=== PATIENT | female | born 1960 | race African-American/Black ===

== ENCOUNTER 2018-06-06 22:50 | Inpatient (IN) | payer SELFPAY ==
[~2018-06-06] VITALS: Ht 165.1 cm; Wt 91.8 kg
[2018-06-06] VITALS (23 sets, daily range): BP systolic 168–177; BP diastolic 75–82; PULSE 83; TEMP 98.1; O2SAT 93–96
[~2018-06-06 22:50] MED LIST: ASPIRIN E.C. 8181 MG PO; BENICAR HCT 251 TAB PO; BENICAR40 MG PO; BYSTOLIC10 MG PO; BYSTOLIC2.5 MG; CIPRO 500MG TA500 MG PO; COMBIGAN 0.2%-010 ML OU; COREG12.5 MG PO; DETROL LA 2 MG2 MG PO; FORTAMET500 MG PO; GLUCOPHAGE500 MG/TAB PO; KLOR-CON M2020 MEQ PO; LASIX 20MG TABL20 MG PO; LASIX 40MG TABL40 MG PO; LIPITOR 10MG10 MG PO; LIPITOR 80MG80 MG PO; LIPITOR20 MG PO; LUMIGAN 7.5 ML7.5 M1 OP; MOBIC15 MG PO; NEURONTIN300 MG/CAP PO; NORCO 325 MG-51 TAB PO; NORVASC 10MG10 MG PO; PROAIR HFA0.09 MG/AC IH; RESTORIL 1515 MG/CAP PO; TOPROL XL 25MG25 MG PO; ZESTRIL 20MG TA20 MG PO
--- NOTE | 2018-06-06 23:37 | NUR ---
Patient arrives to ICU 7 via stretcher with [facility]. Prior report recieved from [facility] ED. Patient ambulates to toilet with standby assistance and then to bed. She is attached to monitors. Assessment and vitals as charted. Provider notified of patient arrival. LW peripheral IV is flushed and patent. Cardene is infusing at 5mg/hr (50mls/hr) from prior facility. Care assumed at this time.
[2018-06-07] VITALS (721 sets, daily range): BP systolic 116–177; BP diastolic 52–94; PULSE 74–93; TEMP 98.1–98.2; O2SAT 85–98
--- NOTE | 2018-06-07 00:17 | NUR ---
After review of patient packet from [facility] no current/accurate medrec is provided. This RN calls and requests updated list faxed to ICU.
[2018-06-07 00:34] LABS: TROPONIN-I < 0.012 ng/mL (0.000-0.035)
--- NOTE | 2018-06-07 00:39 | NUR ---
Fax recieved from [facility] with updated medrec. Reviewed with patient and updated as charted. Care ongoing.
[2018-06-07 00:40] LABS: MAGNESIUM 1.5 mg/dL (1.6-2.3)
[2018-06-07 00:41] LABS: INR 1.1 (0.8-3.0); PROTHROMBIN TIME 12.2 SECONDS (9.7-12.8)
[2018-06-07 00:44] LABS: PARTIAL THROMBOPLASTIN TIME 29.3 SECONDS (26.0-37.0)
[2018-06-07] MEDS ORDERED: LIPITOR 40MG TA40 MG PO ×2 (00:45→14:18)
[2018-06-07] MEDS ORDERED: NEURONTIN100 MG/CAP PO ×2 (00:46→14:19)
[2018-06-07] MEDS ORDERED: JANUMXR100-1000 PO ×2 (00:46→14:23)
[2018-06-07] MEDS ORDERED: COREG 25MG25 MG/TAB PO ×2 (00:46→14:18)
[2018-06-07] MEDS ORDERED: DITROPAN 5MG TAB5 MG PO ×2 (00:47→14:27)
[2018-06-07] MEDS ORDERED: COZAAR100 MG PO ×2 (00:47→14:18)
[2018-06-07] MEDS ORDERED: PROTONIX 40MG T40 MG PO ×2 (00:48→14:21)
[2018-06-07] MEDS ORDERED: REQUIP 0.5MG0.5 MG PO ×2 (00:48→14:19)
[2018-06-07] MEDS ORDERED: ZOFRAN8 MG PO (00:49)
[2018-06-07] MEDS ORDERED: LASIX 40MG TABL40 MG PO (00:50)
[2018-06-07 00:58] LABS: TSH w REFLEX 0.856 uIU/mL (0.465-4.680)
[2018-06-07] MEDS ORDERED: NOVOLOG 100U100 U/M1 SQ ×2 (01:20→14:27)
[2018-06-07] MEDS ORDERED: TRESIBA FL100 UNIT/1 SQ ×2 (01:21→14:26)
[2018-06-07] MEDS ORDERED: TRULICITY0.75 MG/0. (01:21)
[2018-06-07] MEDS ORDERED: TRULICITY0.75 MG/0. SQ ×2 (01:21→14:26)
[2018-06-07] MEDS ORDERED: JARDIANCE10 (01:22)
[2018-06-07 01:28] LABS: PH 6 (5-8); SQUAMOUS EPITHELIAL 0-2 /hpf; URINE APPEARANCE Clear; URINE BACTERIA None Seen /hpf; URINE BILIRUBIN Negative (NEGATIVE); URINE BLOOD Negative (NEGATIVE); URINE COLOR Straw; URINE GLUCOSE 3+ (NEGATIVE); URINE KETONE Negative (NEGATIVE); URINE LEUKOCYTE ESTERASE Negative (NEGATIVE); URINE NITRATE Negative (NEGATIVE); URINE PROTEIN(semi-quant) Negative (NEGATIVE); URINE RBC 0-2 /hpf; URINE UROBILINOGEN Negative (NEGATIVE)
[2018-06-07 02:11] LABS: COLLECTION METHOD CLEAN CATCH
--- NOTE | 2018-06-07 03:38 | NUR ---
Patient with frequent trips to the bathroom through night with standby assistance provided.
[2018-06-07 03:48] LABS: HEMATOCRIT 41.3 % (37.0-47.0); MEAN CELL VOLUME 90 fl (80.0-100.0); MEAN CORPUSCULAR HEMOGLOBIN 28 pg (27.0-31.0); MEAN CORPUSCULAR HGB CONC 32 g/dl (33.0-37.0); MEAN PLATELET VOLUME 11.1 fl (7.4-10.4); PLATELET COUNT 264 K/mm3 (130-400); RED BLOOD COUNT 4.61 M/mm3 (4.10-5.30); REDCELL DISTRIBUTION WIDTH-CV 12.8 % (11.5-14.5)
[2018-06-07 03:58] LABS: ALANINE AMINOTRANSFERASE 12 U/L (9-52); ALBUMIN 4.3 gm/dL (3.5-5.0); ALKALINE PHOSPHATASE 126 U/L (50-136); ANION GAP 14 mmol/L (7-16); AST,SGOT 30 U/L (15-37); BILIRUBIN,TOTAL 0.4 mg/dL (0.0-1.0); BLOOD UREA NITROGEN 18 mg/dL (7-17); CALCIUM 9.5 mg/dL (8.4-10.2); CARBON DIOXIDE 23 mmol/L (22-30); CHLORIDE 102 mmol/L (98-107); CHOLESTEROL 149 mg/dL (120-200); CHOLESTEROL RISK RATIO 3.3; CREATININE, serum 0.82 mg/dL (0.52-1.25); GLUCOSE 392 mg/dL (74-106); HDL CHOLESTEROL 44 mg/dL; LDL CHOLESTEROL 89 mg/dL; POTASSIUM 4.2 mmol/L (3.4-5.0); SODIUM 138 mmol/L (137-145); TOTAL PROTEIN 8.6 gm/dL (6.4-8.2); TRIGLYCERIDE 82 mg/dL
[2018-06-07 04:26] LABS: TROPONIN-I < 0.012 ng/mL (0.000-0.035)
--- NOTE | 2018-06-07 07:05 | NUR ---
Report received from Olivia Lowry RN and care resumed. Pt resting quietly in bed. Will continue to follow.
[2018-06-07 09:15] LABS: LYMPHOCYTE 11 % (20.0-51.0); NEUTROPHILS 89 % (42.0-75.2)
[2018-06-07 09:32] LABS: TOXIC GRANULATION PRESENT
--- NOTE | 2018-06-07 10:20 | NUR ---
Dr Nassar in to see pt at this time.
--- NOTE | 2018-06-07 10:39 | NUR ---
Dr Dyer in to see pt at this time.
--- NOTE | 2018-06-07 13:10 | NUR ---
Handyman prayed with patient while they were eating.
[2018-06-07] MEDS ORDERED: ZOFRAN 4MG T4 MG/TAB PO (14:20)
--- NOTE | 2018-06-07 14:37 | NUR ---
DRE met with patient about discharge planning. Patient recently moved to [place]. Patient lives independently at home with roommates. Patient plans to use [facility] in [place] for primary care and [facility] for medications. Patient does not use any home health services or DME in the home. Patient does not have a DPOA and is not interested in that at this time. Patient does not have insurance at this time but if working to find a job that she can get insurance though. DRE provided financial assistance application. Patient reports she will contact the financial counselor on Saturday to fac completed application back. Patient is discharging today. DRE does not anticipate any discharge needs.
--- NOTE | 2018-06-07 15:23 | NUR ---
Pt's IV dc'd and pt given discharge instructions. Currently just remains waiting on ride to bring her clothing. Will continue to follow.
--- NOTE | 2018-06-07 15:50 | NUR ---
Pt taken out by wheelchair to private car for discharge at this time.
== END 2018-06-07 15:50 | disposition home or self-care (01) | DRG 282 ==
LOC: IMCU 22:50 → ICU 23:25
PROVIDERS: Nurse Practitioner Family; ADMIT Hospitalist
DX: I16.0 Hypertensive urgency (principal); I21.A1 Myocardial infarction type 2; I10 Essential (primary) hypertension; E78.5 Hyperlipidemia, unspecified; I27.20 Pulmonary hypertension, unspecified; E11.40 Type 2 diabetes mellitus with diabetic neuropathy, unspecified; G25.81 Restless legs syndrome; J98.4 Other disorders of lung; E83.42 Hypomagnesemia; K21.9 Gastro-esophageal reflux disease without esophagitis; Z88.0 Allergy status to penicillin
CPT/HCPCS: J1650; J1815; J3475; J7030; J7050

== ENCOUNTER 2018-10-13 15:18 | Inpatient (IN) | payer SELFPAY ==
[~2018-10-13] VITALS: Ht 165.1 cm; Wt 98.7 kg
[~2018-10-13 15:18] MED LIST changes: +COREG 25MG25 MG/TAB PO; +COZAAR100 MG PO; +DITROPAN 5MG TAB5 MG PO; +JANUMXR100-1000 PO; +JARDIANCE10; +LIPITOR 40MG TA40 MG PO; +NEURONTIN100 MG/CAP PO; +NOVOLOG 100U100 U/M1 SQ; +PROTONIX 40MG T40 MG PO; +REQUIP 0.5MG0.5 MG PO; +TRESIBA FL100 UNIT/1 SQ; +TRULICITY0.75 MG/0.; +TRULICITY0.75 MG/0. SQ; +ZOFRAN 4MG T4 MG/TAB PO; +ZOFRAN8 MG PO
[2018-10-13 17:16] VITALS: BP 124/47; PULSE 45; TEMP 98.1
--- NOTE | 2018-10-13 18:00 | NUR ---
PATIENT WAS ADMITTED TO THE FLOOR. INITIAL ASSESSMENT PAPERWORK COMPLETED. MEDICATIONS ENTERED TO MED REC. LAB IN TO TAKE HEPXA AT THIS TIME. HEPARIN DRIP INFUSING PER ORDERS.
[2018-10-13] MEDS ORDERED: JARDIANCE10 (18:50)
[2018-10-13] MEDS ORDERED: TRULICITY0.75 MG/0. SQ (18:52)
[2018-10-13] MEDS ORDERED: RESTORIL 1515 MG/CAP PO (18:56)
[2018-10-13] MEDS ORDERED: LASIX 40MG TABL40 MG PO (18:56)
[2018-10-13] MEDS ORDERED: K-DUR20 MEQ PO (18:57)
[2018-10-13] MEDS ORDERED: CELEXA 20MG20 MG/TAB PO (18:58)
--- NOTE | 2018-10-13 18:58 | NUR ---
Report given to TESHA Olson. Patient resting in bed, ordering dinner. Denies any other needs at this time. Call light within reach.
[2018-10-13] MEDS ORDERED: PROAIR RES117 MCG/Ac IH (19:00)
--- NOTE | 2018-10-13 19:16 | NUR ---
MED REC IN COMPUTER PER PT MED LIST. PT STATED THAT SHE DOESNT KNOW WHAT MEDS SHE TAKES AT WHAT TIME. STATES SHE SORTS IT OUT EVERY WEEK AND PUTS INTO A PILL BOX, DOESNT KNOW WHAT MED SHE TAKES WHEN
[2018-10-13 19:31] LABS: PARTIAL THROMBOPLASTIN TIME 205.8 SECONDS (26.0-37.0)
--- NOTE | 2018-10-13 19:37 | NUR ---
See chart for resulted heparin xa and PTT. Low dose heparin protocol followed. Infusion stopped x 1 hr. Carolyn CASTANEDA notified of results. Communication to follow protocol.
[2018-10-13 23:05] VITALS: BP 159/59; PULSE 51; TEMP 98.1
[2018-10-14] VITALS (11 sets, daily range): BP systolic 114–185; BP diastolic 47–74; PULSE 50–63; TEMP 97.9–98.1
[2018-10-14 06:57] LABS: BASO % 0.3 % (0.0-2.0); EOS # 0.1 (0.0-0.7); EOS % 0.7 % (0-4.0); GRAN # 6.1 (1.4-6.5); GRAN % 64.7 % (42.2-75.2); HEMOGLOBIN 11.6 g/dl (12.5-16.0); LYMPH # 2.3 (1.2-3.4); LYMPH % 24.8 % (20.0-51.0); MEAN CELL VOLUME 92 fl (80.0-100.0); MEAN CORPUSCULAR HEMOGLOBIN 29 pg (27.0-31.0); MEAN CORPUSCULAR HGB CONC 32 g/dl (33.0-37.0); MONO # 0.9 (0.1-0.6); MONO % 9.3 % (1.7-9.3); PLATELET COUNT 199 K/mm3 (130-400); RED BLOOD COUNT 3.99 M/mm3 (4.10-5.30); REDCELL DISTRIBUTION WIDTH-CV 12.5 % (11.5-14.5)
[2018-10-14 06:58] LABS: HEMATOCRIT 36.7 % (37.0-47.0)
[2018-10-14 07:00] LABS: ANION GAP 9 mmol/L (7-16); BLOOD UREA NITROGEN 16 mg/dL (7-17); CALCIUM 9.6 mg/dL (8.4-10.2); CARBON DIOXIDE 25 mmol/L (22-30); CHLORIDE 105 mmol/L (98-107); CHOLESTEROL 134 mg/dL (120-200); CHOLESTEROL RISK RATIO 4.6; CREATININE, serum 0.68 (0.52-1.25); GLUCOSE 156 mg/dL (74-106); HDL CHOLESTEROL 29 mg/dL; LDL CHOLESTEROL 65 mg/dL; MAGNESIUM 1.8 mg/dL (1.6-2.3); POTASSIUM 3.8 mmol/L (3.4-5.0); SODIUM 139 mmol/L (137-145); TRIGLYCERIDE 198 mg/dL
[2018-10-14 07:08] LABS: TROPONIN-I < 0.012 ng/mL (0.000-0.035)
--- NOTE | 2018-10-14 08:12 | NUR ---
PATIENT LEAVING UNIT FOR CARDIAC CATH. CONSENT SIGNED.
--- NOTE | 2018-10-14 08:36 | NUR ---
ALL MEDICATIONS GIVEN VORB WITH MD. SEE MERGE FOR ALL MEDICATION ADMIN TIMES. SEE RASS ASSESSMENTS DURING AND POST PROCEDURE. RADIAL PULSE +1. HEPARIN GTT DISCONTINUED PRIOR TO PROCEDURE PER MD ORDERS.
--- NOTE | 2018-10-14 09:23 | NUR ---
Patient transported back to Medical room 307 at this time, telemetry in place. Patient hooked back up to monitoring equipment, VS stable. Patient denies any pain. Bedside report given to TESHA Chang and TESHA Katz. Visualized right radial site. TR band remains in place with 18 cc of air in the band. Cap refill <3 seconds, pulse +1. No oozing or hematoma noted at this time. Discussed wrist restrictions with patient, all questions addressed at this time. Bed in locked and lowest position, call light within reach.
--- NOTE | 2018-10-14 09:23 | NUR ---
Patient returned to unit from laboratory sample carrier at this time. 18 mls of air in right radial band. Morning meds given. Heparin gtt discontinued. NS running at 30. Post op vitals Q15 for one hour. Patient resting in bed, ordering breakfast. Denies any other needs at this time. Call light within reach.
[2018-10-14] MEDS ORDERED: ASPIRIN E.C. 8181 MG PO (11:04)
[2018-10-14] MEDS ORDERED: NITROSTAT0.4 MG/TAB SL (11:06)
--- NOTE | 2018-10-14 11:36 | NUR ---
SW attended clinical rounds to discuss discharge planning. Patient lives independently at home in . Patient's PCP is Dr Jay at the [facility] in and patient obtains prescriptions from [facility] in . Patient is independent with all ADLs and does not require home health or DME. Patient will discharge later today. SW does not anticipate any discharge needs.
--- NOTE | 2018-10-14 12:28 | NUR ---
FIRST 5 ML OF AIR REMOVED FROM BAND. NO BLEEDING AT THE SITE. EDUCATED TO WATCH FOR BLEEDING AND TO LET US KNOW. VITALS HAVE REMAINED STABLE. NO COMPLAINT OF PAIN.
--- NOTE | 2018-10-14 13:56 | NUR ---
5 MLS OF AIR REMOVED FROM BAND AT THIS TIME. NO BLEEDING OR PAIN AT SITE. EDUCATED TO WATCH FOR BLEEDING AND NOFITY NURSE IF BLEEDING OCCURS. PATIENT STATES UNDERSTANDING.
--- NOTE | 2018-10-14 15:11 | NUR ---
REMAINDER OF AIR REMOVED FROM BAND. NO BLEEDING OR PAIN OR DISCOLORATION AT THE SITE. TOOK OFF ARMBOARD, BUT LEFT BAND ON WRIST UNTIL DISCHARGE. TELE REMOVED, PATIENT CALLING FOR RIDE AND GETTING DRESSED AT THIS TIME.
--- NOTE | 2018-10-14 16:47 | NUR ---
Discharge instructions given. IV removed, tip in tact. Band left in place until patient leaves the facility. Waiting in room for ride to arrive. Will notify nursing staff when ready to be escorted out of the facility.
--- NOTE | 2018-10-14 18:42 | NUR ---
Patient escorted out of facility at this time by [employer].
== END 2018-10-14 18:40 | disposition home or self-care (01) | DRG 282 ==
LOC: MEDICAL 15:18
PROVIDERS: ADMIT Internal Medicine
PROC: 4A023N7 Measurement of Cardiac Sampling and Pressure, Left Heart, Percutaneous Approach (ICD-10-PCS; principal; 2018-10-14)
PROC: B2111ZZ Fluoroscopy of Multiple Coronary Arteries using Low Osmolar Contrast (ICD-10-PCS; 2018-10-14)
DX: I21.4 Non-ST elevation (NSTEMI) myocardial infarction (principal); I25.10 Atherosclerotic heart disease of native coronary artery without angina pectoris; E11.40 Type 2 diabetes mellitus with diabetic neuropathy, unspecified; E78.5 Hyperlipidemia, unspecified; I27.20 Pulmonary hypertension, unspecified; K21.9 Gastro-esophageal reflux disease without esophagitis; G25.81 Restless legs syndrome; I10 Essential (primary) hypertension; E66.9 Obesity, unspecified; F32.9 Major depressive disorder, single episode, unspecified; F41.9 Anxiety disorder, unspecified; M19.90 Unspecified osteoarthritis, unspecified site; E11.39 Type 2 diabetes mellitus with other diabetic ophthalmic complication; H40.9 Unspecified glaucoma; H42 Glaucoma in diseases classified elsewhere; R07.89 Other chest pain; Z90.710 Acquired absence of both cervix and uterus; Z90.49 Acquired absence of other specified parts of digestive tract; Z79.4 Long term (current) use of insulin; Z88.0 Allergy status to penicillin; Z88.8 Allergy status to other drugs, medicaments and biological substances
CPT/HCPCS: G0378; J1644; J1815; J2250; J3010; J7030; Q9967

== ENCOUNTER → 2019-03-05 | Outpatient (CLI) | payer OTHER ==
[~2019-03-05] MED LIST changes: +CELEXA 20MG20 MG/TAB PO; +K-DUR20 MEQ PO; +NITROSTAT0.4 MG/TAB SL; +PROAIR RES117 MCG/Ac IH
== END ==
LOC: COL.PUL 10:55
DX: Z02.71 Encounter for disability determination (principal)

== ENCOUNTER 2020-01-01 01:50 | Inpatient (IN) | payer MEDICAID ==
[~2020-01-01] VITALS: Ht 160 cm; Wt 98.9 kg
[2020-01-01] VITALS (279 sets, daily range): BP systolic 132–178; BP diastolic 56–86; PULSE 64–93; TEMP 97.7–99; O2SAT 79–100
[2020-01-01 03:29] LABS: BASO % 0.1 % (0.0-2.0); EOS # 0.1 (0.0-0.7); EOS % 1.7 % (0-4.0); GRAN # 4.7 (1.4-6.5); GRAN % 63.2 % (42.2-75.2); HEMATOCRIT 40.1 % (37.0-47.0); HEMOGLOBIN 12.6 g/dl (12.5-16.0); LYMPH % 27.3 % (20.0-51.0); MEAN CELL VOLUME 90 fl (80.0-100.0); MEAN CORPUSCULAR HEMOGLOBIN 28 pg (27.0-31.0); MEAN CORPUSCULAR HGB CONC 31 g/dl (33.0-37.0); MEAN PLATELET VOLUME 11.7 fl (7.4-10.4); MONO # 0.6 (0.1-0.6); MONO % 7.6 % (1.7-9.3); PLATELET COUNT 216 K/mm3 (130-400); RED BLOOD COUNT 4.46 M/mm3 (4.10-5.30); REDCELL DISTRIBUTION WIDTH-CV 12.6 % (11.5-14.5)
[2020-01-01 03:39] LABS: ALANINE AMINOTRANSFERASE 31 U/L (4-34); ALBUMIN 4.5 gm/dL (3.5-5.0); ALKALINE PHOSPHATASE 135 U/L (50-136); ANION GAP 9 mmol/L (7-16); AST,SGOT 29 U/L (15-37); BILIRUBIN,TOTAL 0.6 mg/dL (0.0-1.0); BLOOD UREA NITROGEN 16 mg/dL (7-17); CALCIUM 9.6 mg/dL (8.4-10.2); CARBON DIOXIDE 29 mmol/L (22-30); CHLORIDE 104 mmol/L (98-107); CREATININE, serum 0.84 (0.52-1.25); GLUCOSE 156 mg/dL (74-106); POTASSIUM 4.2 mmol/L (3.4-5.0); SODIUM 142 mmol/L (137-145); TOTAL PROTEIN 8.4 gm/dL (6.4-8.2)
[2020-01-01 03:51] LABS: TROPONIN-I < 0.012 ng/mL (0.000-0.035)
[2020-01-01] MEDS ORDERED: LANTUS100 U/ML SQ ×2 (05:44→05:45)
[2020-01-01] MEDS ORDERED: VICTOZA6 MG/ML SQ (05:45)
--- NOTE | 2020-01-01 10:24 | NUR ---
Value Analyst met with the patient to complete intake. The patient lives alone in [place]. The patient denies DME use and is independent with ADLs. The patient's PCP is JAZZY Paniagua at [facility] in [facility] and patient has medications delivered from [facility] in . The patient does not have advanced directives. The patient has a son, uHy Craft. He is currently incarcerated in [place], [place]. The patient does not want her son to make any healthcare decisions for her due to his mental illnesses. The patient was interested in DPOA-HC form. Form provided. The form was completed and it designates her brother, Nena Taylor #[phone] and her friend Coby Chan #[phone] as alternate agent. This SW and the patient's nurse witnessed. A copy was placed in the chart and the original and copies was provided to the patient. The patient plans to return home at discharge. SW collaborated the above information with the patient's nurse.
--- NOTE | 2020-01-01 19:30 | NUR ---
Patient has a history of type 2 diabetes. No orders for accuchecks or insulin noted on the EMAR. Notified Aubree; to continue insulin administration according to home dosages starting tomorrow. Accuchecks for ACHS ordered.
[2020-01-02] VITALS (328 sets, daily range): BP systolic 133–155; BP diastolic 58–77; PULSE 57–70; TEMP 98–98.3; O2SAT 85–100
--- NOTE | 2020-01-02 13:17 | NUR ---
stopped by and patient mentioned automotive collision estimator has prayed with her.
--- NOTE | 2020-01-02 14:00 | NUR ---
Patient ready to discharge to home. IV taken out. All discharge paperwork reviewed with patient and given to her. Patient payal to ER front entrance via wheelchair by RN, kayleen. Patients friend there waiting to take her home.
== END 2020-01-02 14:02 | disposition home or self-care (01) | DRG 305 ==
LOC: COL.ER 01:50 → ICU 04:40
PROVIDERS: Emergency Medicine; ADMIT Hospitalist
DX: I16.0 Hypertensive urgency (principal); I10 Essential (primary) hypertension; G47.33 Obstructive sleep apnea (adult) (pediatric); E11.42 Type 2 diabetes mellitus with diabetic polyneuropathy; E78.5 Hyperlipidemia, unspecified; E66.9 Obesity, unspecified; J44.9 Chronic obstructive pulmonary disease, unspecified; F32.9 Major depressive disorder, single episode, unspecified; G25.81 Restless legs syndrome; F41.9 Anxiety disorder, unspecified; K21.9 Gastro-esophageal reflux disease without esophagitis; H40.9 Unspecified glaucoma; M19.90 Unspecified osteoarthritis, unspecified site; I25.10 Atherosclerotic heart disease of native coronary artery without angina pectoris; Z88.0 Allergy status to penicillin; Z88.6 Allergy status to analgesic agent; Z79.4 Long term (current) use of insulin; Z68.38 Body mass index [BMI] 38.0-38.9, adult
CPT/HCPCS: 99223-AI; J0360; J1815; J1940; J2405; J7050

== ENCOUNTER → 2021-03-22 | Outpatient (CLI) | payer MEDICARE, MEDICAID ==
[~2021-03-22] MED LIST changes: +LANTUS100 U/ML SQ; +VICTOZA6 MG/ML SQ
== END ==
LOC: MHCPAIN 10:58
DX: M47.816 Spondylosis without myelopathy or radiculopathy, lumbar region (principal); M54.50 Low back pain, unspecified; M53.3 Sacrococcygeal disorders, not elsewhere classified; G89.29 Other chronic pain
CPT/HCPCS: G0463

== ENCOUNTER → 2021-11-22 | Outpatient (RCR) | payer MEDICARE, MEDICAID | END | disposition home or self-care (01) | LOC: MKS.ESL.PT | DX: G62.9 Polyneuropathy, unspecified (principal) ==